=== PATIENT | female | born 1955 | race Hispanic/Latino ===

== ENCOUNTER 2018-10-18 08:41 | Emergency (ER) | payer MEDICAID ==
[2018-10-18] MEDS ORDERED: Albuterol-Ipratrop 3 mg / 0.5 (3 ml) UD INH STA (09:16)
[2018-10-18] MEDS ORDERED: Albuterol-Ipratrop 3 mg / 0.5 (3 ml) UD ONE (09:24)
[2018-10-18 09:48] LABS: BASO # 0.1 K/uL (0.0-0.2); BASO % 1.1 % (0.0-2.0); EOS # 0.3 K/uL (0.0-0.7); EOS % 2.4 % (0.0-4.0); HEMOGLOBIN 12.2 g/dL (12.0-16.0); LYMPH # 1.8 K/uL (1.0-4.3); LYMPH % 15.5 % (20.0-40.0); MEAN CELL VOLUME 92.8 fl (81.0-99.0); MEAN CORPUSCULAR HEMOGLOBIN 30.2 pg (27.0-31.0); MEAN CORPUSCULAR HGB CONC 32.5 g/dL (33.0-37.0); MEAN PLATELET VOLUME 8.4 fl (7.2-11.7); MONO # 1.2 K/uL (0.0-0.8); MONO % 10.5 % (0.0-10.0); NEUT # 8.1 K/uL (1.8-7.0); NEUT % 70.5 % (50.0-75.0); RBC 4.03 Mil/uL (3.80-5.20); WHITE BLOOD COUNT 11.5 K/uL (4.8-10.8)
[2018-10-18 09:59] LABS: ALB/GLOB RATIO 1.3 (1.0-2.1); ALBUMIN 4.1 g/dL (3.5-5.0); ALT/SGPT 13 U/L (9-52); AST/SGOT 15 U/L (14-36); BLOOD UREA NITROGEN 22 mg/dl (7-17); CALCIUM 9.1 mg/dL (8.4-10.2); GFR NON-AFRICAN AMERICAN > 60
[2018-10-18 10:09] LABS: B-TYPE NATRIURETIC PEPTIDE 575 pg/ml (0-900)
--- NOTE | 2018-10-18 10:11 | ED PDOC ---
HPI: CCC, URI, Sore Throat Time Seen by Provider: 10/18/18 08:52 Chief Complaint (Nursing): Cough, Cold, Congestion Chief Complaint (Provider): cough, SOB History Per: Patient History/Exam Limitations: no limitations Onset/Duration Of Symptoms: Days ("since 2016") Current Symptoms Are (Timing): Still Present Sick Contacts (Context): None Associated Symptoms: Cough, Sputum. denies: Fever, Vomiting, Diarrhea Severity: Moderate Additional Complaint(s): 63yo female active smoker presents w worsening cough since last year now associated with exertional dyspnea. Denies hemoptysis, weight loss or syncope. States living in halfway, has not been prior diagnosed with asthma and takes no medications, hasnt seen PMD in >6months, denies fever. Past Medical History Reviewed: Historical Data, Nursing Documentation, Vital Signs Vital Signs: Last Vital Signs Temp 99.0 F 10/18/18 08:49 Pulse 76 10/18/18 08:49 Resp 18 10/18/18 08:49 BP 170/99 H 10/18/18 08:49 Pulse Ox 98 10/18/18 08:49 - Medical History PMH: Anxiety, Arthritis (knees), Bronchitis, Depression, HTN (no med) Denies: COPD - Family History Family History: States: Unknown Family Hx - Living Arrangements Living Arrangements: Other - Social History Current smoker - smoking cessation education provided: Yes - Home Medications Home Medications: Ambulatory Orders Medication Instructions Recorded Albuterol HFA [Ventolin HFA 90 1 - 2 puff IH Q4 PRN #1 inhaler 10/18/18 mcg/actuation (8 g)] Levofloxacin [Levaquin] 750 mg PO DAILY #9 tablet 10/18/18 Prednisone 50 mg PO DAILY #4 tab 10/18/18 - Allergies Allergies/Adverse Reactions: Allergies Allergy/AdvReac Type Severity Reaction Status Date / Time Penicillins Allergy RASH Verified 10/18/18 09:01 amlodipine [From Norvasc] AdvReac SWELLING Verified 10/18/18 09:01 Review of Systems Constitutional: Negative for: Chills Cardiovascular: Positive for: Palpitations. Negative for: Chest Pain Respiratory: Positive for: Cough, Shortness of Breath, SOB with Exertion, Pleuritic Pain, Sputum, Wheezing Gastrointestinal: Negative for: Nausea, Abdominal Pain Genitourinary Female: Negative for: Dysuria Musculoskeletal: Negative for: Neck Pain, Leg Pain, Foot Pain Skin: Negative for: Rash, Lesions Neurological: Negative for: Weakness, Numbness, Headache, Dizziness Psych: Negative for: Suicidal ideation Physical Exam - Reviewed Nursing Documentation Reviewed: Yes Vital Signs Reviewed: Yes - Physical Exam Appears: Positive for: Well, Non-toxic, No Acute Distress Head Exam: Positive for: ATRAUMATIC, NORMAL INSPECTION, NORMOCEPHALIC Skin: Positive for: Normal Color, Warm, DRY Eye Exam: Positive for: EOMI, Normal appearance, PERRL ENT: Positive for: Normal ENT Inspection Neck: Positive for: Normal, Painless ROM Cardiovascular/Chest: Positive for: Regular Rate, Rhythm Respiratory: Positive for: Decreased Breath Sounds, Wheezing. Negative for: Res piratory Distress Gastrointestinal/Abdominal: Positive for: Normal Exam, Soft. Negative for: Tenderness, Guarding Back: Positive for: Normal Inspection Extremity: Positive for: Normal ROM. Negative for: Swelling Neurologic/Psych: Positive for: Alert, Oriented. Negative for: Motor/Sensory Deficits - Laboratory Results Result Diagrams: 10/18/18 09:30 10/18/18 09:30 - ECG ECG: Positive for: Interpreted By Pa ECG Rhythm: Positive for: Sinus Rhythm, Nonspecific Changes Rate: 78 O2 Sat by Pulse Oximetry: 98 Pulse Ox Interpretation: Normal - Radiology X-Ray: Read By Radiologist X-Ray Interpretation: Infiltrates Medical Decision Making Medical Decision Making: workup for cough w wheeze, long smoking history w poor reported medical followup labs reviewed and clinically unremarkable CXR read by radiologist as RML infiltrate given smoking history and cough +10months obtain CT chest Accession No. : [id number] Patient Name / ID : OPHELIA DUBOIS / [id number] Exam Date : 10/18/2018 12:55:44 ( Approved ) Study Comment : Sex / Age : F / 63Y Creator : Keshawn Vera MD Dictator : Keshawn Vera MD Center Human Resources Manager : [employer] Vendor : Keshawn Vera MD Approver2 : Report Date : 10/18/2018 13:24:02 My Comment : Date of service: 10/18/2018 PROCEDURE: CT Chest without contrast HISTORY: smoker, cough, infiltrate COMPARISON: None available. TECHNIQUE: Contiguous axial images were obtained through the chest without intravenous contrast enhancement. Sagittal and coronal reconstructions were performed. Radiation dose: Total exam DLP = 490.03 mGy-cm. This CT exam was performed using one or more of the following dose reduction techniques: Automated exposure control, adjustment of the mA and/or kV according to patient size, and/or use of iterative reconstruction technique. FINDINGS: LUNGS: Consolidative changes, volume loss right middle lobe confirming findings on recent chest radiograph. No visible endobronchial lesion or obstructing abnormality. The findings affecting both medial and lateral segments of the right middle lobe. No additional pulmonary nodules, masses or infiltrates. MEDIASTINUM: Unremarkable thoracic aorta. No aneurysm. Normal sized heart. Main pulmonary artery unremarkable. No vascular congestion. No lymphadenopathy. Aneurysmal dilatation of the ascending aorta 4.4 cm. Atherosclerotic calcification and mural plaque present. Findings are scattered primarily in the descending thoracic and upper abdominal aorta. PLEURA: No pleural fluid. No pneumothorax. BONES: No fracture. No destructive lesion. Evidence of old healed right rib fractures. Non marginal osteophyte formation mid and lower thoracic spine the overall appearance is nonspecific. This can be seen with variant of ankylosing spondyli tis. There are additional non marginal osteophytes noted lower thoracic and upper lumbar region. UPPER ABDOMEN: Macro Cholelithiasis without CT evidence of acute cholecystitis. OTHER FINDINGS: None. IMPRESSION: Confirmation of right middle lobe infiltrate with volume loss, findings affect both medial lateral segments. No endobronchial abnormalities detected. given unremarkable labs and no resp distress, normal SPO2 and improved lung sounds , stable for outpatient followup and treatment. smoking cessation discussed repeat CXR 15 days to assure resolution of infiltrate outpatient pulm workup recommended Disposition - Clinical Impression Clinical Impression: Pneumonia, Chronic cough - Patient ED Disposition Is Patient to be Admitted: No Counseled Patient/Family Regarding: Studies Performed, Diagnosis, Need For Foll owup - Disposition Referrals: [facility] [Outside] Disposition: Routine/Home Disposition Time: 13:55 Condition: STABLE Additional Instructions: Attempt to stop smoking, take antibiotics as directed, use nebulizer and oral steroid as directed/. Return to ER for any difficulty breathing. Prescriptions: Albuterol HFA [Ventolin HFA 90 mcg/actuation (8 g)] 1 - 2 puff IH Q4 PRN #1 inhaler PRN Reason: Shortness Of Breath Levofloxacin [Levaquin] 750 mg PO DAILY #9 tablet Prednisone 50 mg PO DAILY #4 tab Instructions: Pneumonia in Adults, Cough in Adults, Quitting Smoking Forms: [facility] ([place]ux[place]ish)
--- NOTE | 2018-10-18 11:26 | RAD ---
Date of service: 10/18/2018 HISTORY: cough SOB COMPARISON: No prior. TECHNIQUE: Chest PA and lateral FINDINGS: LUNGS: Infiltrate/atelectasis right middle lobe. PLEURA: No significant pleural effusion identified. No pneumothorax apparent. CARDIOVASCULAR: No aortic atherosclerotic calcification present. No radiographic findings to suggest acute or significant cardiovascular disease. No pulmonary vascular congestion. OSSEOUS STRUCTURES: No significant abnormalities. Healed posterior lateral left rib fractures. Non marginal osteophyte formation at multiple levels. VISUALIZED UPPER ABDOMEN: Normal. OTHER FINDINGS: None. IMPRESSION: Right middle lobe infiltrate/atelectasis with volume loss.
--- NOTE | 2018-10-18 13:27 | CT ---
Date of service: 10/18/2018 PROCEDURE: CT Chest without contrast HISTORY: smoker, cough, infiltrate COMPARISON: None available. TECHNIQUE: Contiguous axial images were obtained through the chest without intravenous contrast enhancement. Sagittal and coronal reconstructions were performed. Radiation dose: Total exam DLP = 490.03 mGy-cm. This CT exam was performed using one or more of the following dose reduction techniques: Automated exposure control, adjustment of the mA and/or kV according to patient size, and/or use of iterative reconstruction technique. FINDINGS: LUNGS: Consolidative changes, volume loss right middle lobe confirming findings on recent chest radiograph. No visible endobronchial lesion or obstructing abnormality. The findings affecting both medial and lateral segments of the right middle lobe. No additional pulmonary nodules, masses or infiltrates. MEDIASTINUM: Unremarkable thoracic aorta. No aneurysm. Normal sized heart. Main pulmonary artery unremarkable. No vascular congestion. No lymphadenopathy. Aneurysmal dilatation of the ascending aorta 4.4 cm. Atherosclerotic calcification and mural plaque present. Findings are scattered primarily in the descending thoracic and upper abdominal aorta. PLEURA: No pleural fluid. No pneumothorax. BONES: No fracture. No destructive lesion. Evidence of old healed right rib fractures. Non marginal osteophyte formation mid and lower thoracic spine the overall appearance is nonspecific. This can be seen with variant of ankylosing spondylitis. There are additional non marginal osteophytes noted lower thoracic and upper lumbar region. UPPER ABDOMEN: Macro Cholelithiasis without CT evidence of acute cholecystitis. OTHER FINDINGS: None. IMPRESSION: Confirmation of right middle lobe infiltrate with volume loss, findings affect both medial lateral segments. No endobronchial abnormalities detected.
[2018-10-18 13:57] VITALS: TEMP 98.8
[2018-10-18 14:27] VITALS: BP 170/90; PULSE 78; RESP 19
[2018-10-18 14:36] VITALS: O2SAT 98
[2018-10-18] MEDS ORDERED: levoFLOXacin 750 MG TAB PO ONE (14:45)
--- NOTE | 2018-10-19 15:09 | CARD ---
APPROVED REPORT Date of service: 10/18/2018 EKG Measurement Heart [id number] [id number] <Conclusion> Normal sinus rhythm Minimal voltage criteria for LVH, may be normal variant Abnormal ECG
== END 2018-10-18 15:30 | disposition home or self-care (01) ==
LOC: H.ER 08:41
DX: J18.9 Pneumonia, unspecified organism (principal); R05 Cough; F17.200 Nicotine dependence, unspecified, uncomplicated; I10 Essential (primary) hypertension; Z88.0 Allergy status to penicillin; Z88.8 Allergy status to other drugs, medicaments and biological substances
CPT/HCPCS: 71046; 71250; 80053; 80320; 83880; 84484; 85025; 93005; 94150; 94640; 96374; 99284; J2930

== ENCOUNTER 2018-11-27 12:13 | Emergency (ER) | payer MEDICAID ==
[2018-11-27 12:20] VITALS: RESP 20; O2SAT 100
[2018-11-27 12:21] VITALS: BMI 28.1
--- NOTE | 2018-11-27 13:33 | RAD ---
Date of service: 11/27/2018 HISTORY: cough, HTN COMPARISON: Chest radiograph dated 10/18/2018. TECHNIQUE: Chest PA and lateral FINDINGS: LUNGS: No active pulmonary disease. PLEURA: No significant pleural effusion identified. No pneumothorax apparent. CARDIOVASCULAR: Aortic atherosclerotic calcifications. Cardiomediastinal silhouette stably enlarged. OSSEOUS STRUCTURES: Old bilateral rib fractures. Unchanged. VISUALIZED UPPER ABDOMEN: Normal. OTHER FINDINGS: None. IMPRESSION: No active disease.
[2018-11-27 13:45] LABS: BASO # 0.1 K/uL (0.0-0.2); BASO % 1.1 % (0.0-2.0); EOS # 0.7 K/uL (0.0-0.7); EOS % 9.2 % (0.0-4.0); HEMOGLOBIN 12.3 g/dL (12.0-16.0); LYMPH # 1.8 K/uL (1.0-4.3); LYMPH % 23.6 % (20.0-40.0); MEAN CELL VOLUME 95.3 fl (81.0-99.0); MEAN CORPUSCULAR HEMOGLOBIN 31.4 pg (27.0-31.0); MEAN PLATELET VOLUME 7.9 fl (7.2-11.7); MONO # 0.6 K/uL (0.0-0.8); MONO % 8.2 % (0.0-10.0); NEUT # 4.4 K/uL (1.8-7.0); NEUT % 57.9 % (50.0-75.0); NRBC % 0.1 % (0.0-0.0); RBC 3.91 Mil/uL (3.80-5.20); RED CELL DISTRIBUTION WIDTH 14.7 % (11.5-14.5); WHITE BLOOD COUNT 7.6 K/uL (4.8-10.8)
[2018-11-27 13:52] LABS: BLOOD UREA NITROGEN 21 mg/dl (7-17); CALCIUM 9.7 mg/dL (8.4-10.2); GFR NON-AFRICAN AMERICAN > 60
--- NOTE | 2018-11-27 14:03 | ED PDOC ---
HPI: Hypertension/Hypotension Time Seen by Provider: 11/27/18 12:51 Chief Complaint (Nursing): High Blood Pressure Chief Complaint (Provider): High Blood Pressure History Per: Patient History/Exam Limitations: no limitations Onset/Duration Of Symptoms: Days Current Symptoms Are (Timing): Still Present Additional Complaint(s): 63 year old female with a past medical history of hypertension, anxiety, and depression who is presenting to the ED for evaluation of high blood pressure onset earlier today. Patient states that she had her blood pressure taken at a [facility] and they told her it was high and called EMS. She reports that she has had high blood pressure since she was a teenage but has not been on medications for several years. Patient was seen at this hospital 1 month ago and was diagnosed with pneumonia and was discharge with antibiotics, steroids, and alb uterol. She admits that she has had continues cough since then. Patient also complains of 1 month of worsening swelling of both lower extremities. She states that swelling is no worse today and it progressively gets worse throughout the day. Of note, patient reports that she was once on Norvasc but she had horrible swelling of legs from the waist down and was told not to take it again. Patient is also allergic to penicillin and lives in a [facility]. PMD: none Past Medical History Reviewed: Historical Data, Nursing Documentation, Vital Signs Vital Signs: Last Vital Signs Temp 98.2 F 11/27/18 12:19 Pulse 67 11/27/18 13:56 Resp 20 11/27/18 12:19 BP 222/128 H 11/27/18 13:56 Pulse Ox 100 11/27/18 12:19 - Medical History PMH: Anxiety, Arthritis (knees), Bronchitis, Depression, HTN (no med) Denies: COPD - Surgical History Surgical History: No Surg Hx - Family History Family History: States: Unknown Family Hx - Social History Current smoker - smoking cessation education provided: Yes Alcohol: Social Drugs: Denies - Home Medications Home Medications: Ambulatory Orders Medication Instructions Recorded Levofloxacin [Levaquin] 750 mg PO DAILY #9 tablet 10/18/18 RX: Albuterol HFA [Ventolin HFA 90 1 - 2 puff IH Q4 PRN #1 inhaler 10/18/18 mcg/actuation (8 g)] RX: Prednisone 50 mg PO DAILY #4 tab 10/18/18 RX: Lisinopril [Prinivil] 10 mg PO DAILY #30 tablet 11/27/18 - Allergies Allergies/Adverse Reactions: Allergies Allergy/AdvReac Type Severity Reaction Status Date / Time Penicillins Allergy RASH Verified 10/25/18 07:40 amlodipine [From [facility]] AdvReac SWELLING Verified 10/25/18 07:40 Review of Systems ROS Statement: Except As Marked, All Systems Reviewed And Found Negative Constitutional: Positive for: Other (high blood pressure ) Respiratory: Positive for: Cough Musculoskeletal: Positive for: Leg Pain (and swelling ) Physical Exam - Reviewed Nursing Documentation Reviewed: Yes Vital Signs Reviewed: Yes - Physical Exam Appears: Positive for: Non-toxic, No Acute Distress Head Exam: Positive for: ATRAUMATIC, NORMAL INSPECTION, NORMOCEPHALIC Skin: Positive for: Normal Color, Warm, DRY Eye Exam: Positive for: EOMI, Normal appearance, PERRL ENT: Positive for: Normal ENT Inspection Neck: Positive for: Normal, Painless ROM, Supple Cardiovascular/Chest: Positive for: Regular Rate, Rhythm. Negative for: Murmur Respiratory: Positive for: Normal Breath Sounds. Negative for: Respiratory Distress Gastrointestinal/Abdominal: Positive for: Normal Exam, Soft. Negative for: Tenderness Back: Positive for: Normal Inspection. Negative for: L CVA Tenderness, R CVA Tenderness, Vertebral Tenderness Extremity: Positive for: Normal ROM, Swelling (bilateral edema to mid-calf 1+ pitting ). Negative for: Deformity Neurologic/Psych: Positive for: Alert, Oriented. Negative for: Motor/Sensory Deficits - Laboratory Results Result Diagrams: 11/27/18 13:20 11/27/18 13:20 - ECG O2 Sat by Pulse Oximetry: 100 (RA) Pulse Ox Interpretation: Normal Medical Decision Making Medical Decision Making: Time: 13:20 A/P: workup for high blood pressure with worsening leg swelling --No other clinical signs of cardiac damage --Basic labs --Chest x-ray --Lisinopril --Reevaluate patient 1545 BP only mildly improved with Lisinopril but no side-effects to medication. PT given clonidine. Pt refusing to stay for further workup or for re-evaluation after Clonidine dosing. Pt given Rx for Lisinopril and referral for outpatient clinic. Pt signed AMA forms. Risk of leaving AMA discussed with the patient and the need for close PMD follow up discussed. Scribe Attestation: Documented by Lisandra Ayers, acting as a scribe for Gaye Hartley MD. Provider Scribe Attestation: All medical record entries made by the Scribe were at my direction and personally dictated by me. I have reviewed the chart and agree that the record accurately reflects my personal performance of the history, physical exam, medical decision making, and the department course for this patient. I have also personally directed, reviewed, and agree with the discharge instructions and disposition Disposition - Clinical Impression Clinical Impression: Chronic cough, Hypertension - Disposition Referrals: [facility] [Outside] Disposition: Against Medical Advice Disposition Time: 15:45 Condition: IMPROVED Additional Instructions: Follow up with outpatient clinic for blood pressure management and workup for chronic lung disease. Take medications as prescribed. Prescriptions: RX: Lisinopril [Prinivil] 10 mg PO DAILY #30 tablet Instructions: Cough in Adults, High Blood Pressure in Adults, High Blood Pressure (DC) Forms: [employer] ([place]orean)
[2018-11-27 14:46] LABS: B-TYPE NATRIURETIC PEPTIDE 402 pg/ml (0-900)
[2018-11-27 15:28] VITALS: BP 195/107; PULSE 75; TEMP 98.3
--- NOTE | 2018-11-28 00:01 | CARD ---
APPROVED REPORT Date of service: 11/27/2018 EKG Measurement Heart [id number] [id number] [id number] <Conclusion> Normal sinus rhythm Moderate voltage criteria for LVH, may be normal variant Abnormal ECG
== END 2018-11-27 16:11 | disposition home or self-care (01) ==
LOC: H.ER 12:13
DX: I10 Essential (primary) hypertension (principal); R05 Cough; F41.9 Anxiety disorder, unspecified